=== PATIENT | male | born 2000 | race Caucasian/White ===

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

== ENCOUNTER 2018-01-12 14:25 | Emergency (ER) | payer OTHER ==
[2018-01-12 14:39] VITALS: BP 113/64
[2018-01-12] MEDS ORDERED: predniSONE TAB* 20 MG PO ONE (14:48)
[2018-01-12] MEDS ORDERED: Triamcinolone Acetonide* 40 MG/ML 1 ML VIAL IM ONE (14:48)
--- NOTE | 2018-01-12 14:56 | UC ---
Skin Complaint HPI - HPI Summary HPI Summary: Patient is a 17-year-old male with a 3 day history of a spreading pruritic rash. He states that he was out in the [place] a week or so ago. Fever or chills absent. No headache or myalgias. - History of Current Complaint Chief Complaint: UCSkin Time Seen by Provider: 01/12/18 14:40 Stated Complaint: SKIN COMPLAINT Hx Obtained From: Patient Onset/Duration: Gradual Onset, Lasting Days Timing: Constant Onset Severity: Mild Current Severity: Mild Pain Intensity: 0 Pain Scale Used: 0-10 Numeric Location: Other - arms/legs/beltline Character: Pruritus, Redness, Raised Aggravating Factor(s): Nothing Alleviating Factor(s): Nothing Associated Signs & Symptoms: Positive: Rash - Allergy/Home Medications Allergies/Adverse Reactions: Allergies Allergy/AdvReac Type Severity Reaction Status Date / Time No Known Allergies Allergy Verified 01/12/18 14:37 Home Medications: Home Medications Aspirin TAB* [Aspirin 325 MG TAB*] 325 mg PO DAILY 01/12/18 [History Confirmed 01/12/18] Review of Systems Constitutional: Negative Skin: Rash Eyes: Negative ENT: Negative Respiratory: Negative Cardiovascular: Negative Gastrointestinal: Negative Genitourinary: Negative Motor: Negative Neurovascular: Negative Musculoskeletal: Negative Neurological: Negative Psychological: Negative Is Patient Immunocompromised?: No All Other Systems Reviewed And Are Negative: Yes PMH/Surg Hx/FS Hx/Imm Hx Previously Healthy: Yes - Surgical History Surgical History: Yes Surgery Procedure, Year, and Place: appendectomy 2010. right acl repair - Family History Known Family History: Positive: Hypertension - Social History Alcohol Use: None Substance Use Type: None Smoking Status (MU): Never Smoked Tobacco - Immunization History Most Recent Influenza Vaccination: UNSURE Vaccination Up to Date: Yes Physical Exam Triage Information Reviewed: Yes Appearance: Well-Appearing, No Pain Distress Vital Signs: Initial Vital Signs Temp 98.7 F 01/12/18 14:34 Pulse 79 01/12/18 14:34 Resp 12 01/12/18 14:34 BP 113/64 01/12/18 14:34 Pulse Ox 99 01/12/18 14:34 Vital Signs Reviewed: Yes ENT Exam: Normal Dental Exam: Normal Neck: Positive: Supple, Nontender, No Lymphadenopathy Respiratory: Positive: Lungs clear, Normal breath sounds, No respiratory distress Cardiovascular: Positive: RRR, No Murmur Musculoskeletal: Positive: ROM Intact, No Edema Neurological: Positive: Alert Psychological Exam: Normal Skin Exam: Other - rash on arms and legs c/w contact dermatitis Course/Dx - Diagnoses Provider Diagnoses: contact dermatitis Discharge - Sign-Out/Discharge Documenting (check all that apply): Discharge/Admit/Transfer - Discharge Plan Condition: Stable Disposition: HOME Patient Education Materials: Contact Dermatitis (ED) Referrals: Geovanna Ashraf MD [Primary Care Provider] - If Needed Additional Instructions: CALL FOR ANY QUESTIONS RETURN FOR ANY PROBLEMS - Billing Disposition and Condition Condition: STABLE Disposition: Home
== END 2018-01-12 15:10 | disposition home or self-care (01) ==
LOC: UCCORT 14:25
DX: L25.9 Unspecified contact dermatitis, unspecified cause (principal)
CPT/HCPCS: 96372; 99212; G0463; J3301; J7512

== ENCOUNTER 2018-11-01 15:53 | Emergency (ER) | payer OTHER ==
--- OUTSIDE RECORDS SUMMARY | 2018-11-01 16:04 | XMS REPORT | Continuity of Care Document ---
:2000 External Reference #:[id number] Author Name Hoa Caldera MD Address [address] [place] [address] Care Team Providers Name Role Phone Luna Palomino NP Care Team Information Financial Service Professional Unavailable Luna Palomino NP Primary Care Physician Unavailable Payers Date Identification Numbers Payment Provider Subscriber Effective: 2018 Policy Number: [id number] [employer] Carlos Tay PayID: [id number] [address] [place] [address] Expires: 2018 Policy Number: [id number] Medicaid Carlos Tay Group Name: 1 1 [address] PayID: [id number] [place] [address] Advance Directives Description No Information Available Problems Date Description Provider Status Onset: 07/30/2017 Irritable bowel syndrome Luna Palomino FNP Active Note: Document: 07/27/17 - Consult Gastrointestinal Onset: 10/04/2017 Sprain of cruciate ligament of knee Dianna Parish PA Active Onset: 10/08/2017 Tear of articular cartilage of right Hoa Caldera MD Active knee, current, subsequent encounter Onset: 01/26/2018 Derangement of knee Hoa Caldera MD Active Onset: 01/29/2017 Adult health examination Geovanna Ashraf MD Resolved Resolved: 07/30/2017 Family History Date Family Member(s) Observation Comments Father Father Alive & Well Father 47 Mother Hypothyroidism Mother 43 Siblings 2 Social History Type Date Description Comments Sex Unknown Lives With Parents Lives With Sibling(S) Diet Patient follows no dietary restrictions Occupation Student Work Status Unemployed Hand Dominance Right-handed Tobacco Use Start: Unknown Never Smoked Cigarettes Tobacco Use Start: Unknown Never Smoked Cigars Tobacco Use Start: Unknown Never Smoked A Pipe Smoking Status Reviewed: 08/01/18 Never Smoked A Pipe Smokeless Tobacco Never Used Smokeless Tobacco ETOH Use Denies alcohol use Tobacco Use Start: Unknown Patient denies history of smoking Recreational Drug Use Denies Drug Use Allergies, Adverse Reactions, Alerts Description No Known Drug Allergies Medications Medication Date Status Form Strength Qnty SIG Indications Ordering Provider Naproxen Sodium Active Tablets 550mg 1 by Unknown 0 mouth twice a day as needed for knee No Active Hx Unknown Medications - 9 No Active Hx Unknown Medications - 8 Percocet Hx Tablets 5-325mg 30tab 1 by Verenice 8 - s mouth Hoa, every 4-6 MD 8 hour as needed pain No Active Hx Unknown Medications - [address] Hx Tablets DR 500mg 60tab 1 tab by Sandie, 8 - s mouth Mina, twice a M.D. 8 day after meals Tretinoin Hx Cream 0.05% Ciaran 0 - [place] MD Peters Clindamycin Hx Solution 1% Ciaran Phosphate 0 - [place] MD Peters Ibuprofen Hx Tablets 600mg 1 tab by Unknown 0 - mouth three 8 times a day Hydrocodone-Gregg Hx Tablets 5-325mg 10tab 1 tab by Unknown taminophen 0 - s mouth every 6 8 hours as needed Cephalexin Hx Capsules 500mg take one Unknown 0 - tab by mouth 8 every 6 hours for seven days Meloxicam Hx Tablets 7.5mg 30tab 1 by Unknown 0 - s mouth every day 8 as needed as directed Acetaminophen Hx Tablets 325mg 100ta Every 6 Unknown 0 - bs Hours as Needed as 8 needed for Pain. Fever Amoxicillin/Cla Hx Tablets 875-125mg 14tab 2 Times A Unknown vulanate 0 - s Day Potassium [address] H[address] 325mg 14tab Once Unknown 0 - s Daily Unknown Omeprazole Hx Tablets DR 20mg 15tab Once Unknown 0 - s Daily 8 Polyethylene Hx Powder 3350NF 30uni AT Unknown Glycol 3350 0 - ts Bedtime 8 Docusate Sodium Hx Tablets 8.6-50mg 60tab 2 Times A Unknown & Senna 0 - s Day Stimulant Laxative/Stool 8 Softener Oxycodone-Aceta Hx Tablets 5-325mg 20tab Every 6 Unknown minophen 0 - s Hours for Pain 8 Tretinoin Hx Cream 0.05% Ciaran 0 - [place], 8 Clindamycin Hx Solution 1% Medhat Wagoner 0 - [place] 8 Oseltamivir Hx Capsules 75mg Thomason, Phosphate 0 - Neisha Arteaga MARVEL 8 Tylenol Hx Tablets 325mg 2 by Unknown 0 - mouth every 12 8 hours as needed Medications Administered in Office Medication Date Status Form Strength Qnty SIG Indications Ordering Provider PPD 08/12 Administered Injection Family /2018 Nurse PPD 07/29 Administered Injection Family /2019 Nurse Methylprednisolone 08/03 Administered Injection gia Allison Elizabeth (Depomedrol) 80mg S., RPAC injection PPD 02/23 Administered Injection Georgette, DANTE Mccoy PPD 01/29 Administered Injection Andriy /2016 MD Geovanna Immunizations CPT Code Status Date Vaccine Lot # [id number] Given 08/02/2017 Varicella (Chicken Pox) Vaccine [id number] 83286 Given 03/04/2016 Meningococcal Conjugate Vaccine Serogroups For [id number] Intramuscular Use 63682 Given 08/05/2009 Tdap injection 89301 Given 08/05/2009 flu vaccination 31528 Given 06/10/2009 H1N1 Immuniation Adminstration 02072 Given 04/03/2003 Poliovirus Vaccine Subcutaneous Or Intramuscular 41680 Given 04/03/2003 MMR Vaccine, Live, For Subcutaneous Use 99579 Given 04/03/2003 DTaP Vaccine Younger Than 7 44744 Given 09/23/2001 Varicella (Chicken Pox) Vaccine 13199 Given 09/23/2001 Pneumococcal Conjugate Vaccine 7 Valent For Intramuscular Use 16433 Given 01/15/2000 Hepatitis B & Hib Vaccine 32187 Given 01/15/2000 Poliovirus Vaccine Subcutaneous Or Intramuscular 88070 Given 01/15/2000 MMR Vaccine, Live, For Subcutaneous Use 52584 Given 11/14/1999 DTaP Vaccine Younger Than 7 51813 Given 1998 Hepatitis B Vaccine Pediatric/Adolescent 94217 Given 1998 DTaP & Hib Vaccine 39270 Given 1998 Poliovirus Vaccine Oral 58797 Given 1998 Hepatitis B Vaccine Pediatric/Adolescent 04902 Given 1998 DTaP & Hib Vaccine 55183 Given 1998 DTP Toxoids & Hib Vaccine 40192 Refused 03/04/2016 Gardasil Vital Signs Date Vital Result Comment 08/01/2018 1:34pm BP Systolic 118 mmHg BP Diastolic 68 mmHg Body Temperature 98.8 F Heart Rate 70 /min Respiratory Rate 18 /min Height 71 inches 5'11" Weight 162.38 lb BMI (Body Mass Index) 22.6 kg/m2 BSA (Body Surface Area) 1.93 m2 [place] body weight in kilograms 78 kg 05/31/2018 10:54am BP Systolic Sitting Left Arm 107 mmHg BP Diastolic Sitting Left Arm 67 mmHg Body Temperature 97.8 F Heart Rate 72 /min Respiratory Rate 17 /min Height 72 inches 6'0" Weight 163.00 lb BMI (Body Mass Index) 22.1 kg/m2 BSA (Body Surface Area) 1.95 m2 [place] body weight in kilograms 81 kg O2 % BldC Oximetry 98 % 05/18/2018 2:30pm BP Systolic Sitting Left Arm 106 mmHg BP Diastolic Sitting Left Arm 62 mmHg Body Temperature 98.7 F Heart Rate 103 /min Pt was at Gym Respiratory Rate 17 /min Height 72 inches 6'0" Weight 159.00 lb BMI (Body Mass Index) 21.6 kg/m2 BSA (Body Surface Area) 1.93 m2 [place] body weight in kilograms 81 kg O2 % BldC Oximetry 95 % 04/11/2018 10:50am BP Systolic 120 mmHg BP Diastolic 76 mmHg Body Temperature 97.7 F Heart Rate 74 /min Height 72 inches 6'0" Weight 161.00 lb BMI (Body Mass Index) 21.8 kg/m2 BSA (Body Surface Area) 1.94 m2 [place] body weight in kilograms 81 kg Height Percentile 80 % Weight Percentile 59th O2 % BldC Oximetry 97 % Pain Level 0 02/28/2018 2:55pm BP Systolic Sitting Right Arm 117 mmHg BP Diastolic Sitting Right Arm 76 mmHg Heart Rate 71 /min Respiratory Rate 12 /min Height 72 inches 6'0" Weight 155.38 lb BMI (Body Mass Index) 21.1 kg/m2 BSA (Body Surface Area) 1.91 m2 [place] body weight in kilograms 81 kg Height Percentile 80 % Weight Percentile 51st O2 % BldC Oximetry 99 % 02/09/2018 1:15pm BP Systolic Sitting Left Arm 109 mmHg BP Diastolic Sitting Left Arm 72 mmHg Body Temperature 97.7 F Heart Rate 81 /min Respiratory Rate 17 /min Height 72 inches 6'0" Weight 154.00 lb BMI (Body Mass Index) 20.9 kg/m2 BSA (Body Surface Area) 1.91 m2 [place] body weight in kilograms 81 kg Height Percentile 80 % Weight Percentile 49th O2 % BldC Oximetry 98 % 01/26/2018 2:22pm BP Systolic Sitting Left Arm 112 mmHg BP Diastolic Sitting Left Arm 71 mmHg Body Temperature 98.4 F Heart Rate 68 /min Respiratory Rate 18 /min Height 72 inches 6'0" Weight 156.00 lb BMI (Body Mass Index) 21.2 kg/m2 BSA (Body Surface Area) 1.92 m2 [place] body weight in kilograms 81 kg Height Percentile 80 % Weight Percentile 52nd O2 % BldC Oximetry 97 % 01/21/2018 1:50pm BP Systolic Sitting Left Arm 109 mmHg BP Diastolic Sitting Left Arm 67 mmHg Body Temperature 97.9 F Heart Rate 67 /min Respiratory Rate 18 /min Height 72 inches 6'0" Weight 156.00 lb BMI (Body Mass Index) 21.2 kg/m2 BSA (Body Surface Area) 1.92 m2 [place] body weight in kilograms 81 kg Height Percentile 80 % Weight Percentile 52nd O2 % BldC Oximetry 97 % 12/27/2017 1:04pm BP Systolic Sitting Right Arm 114 mmHg BP Diastolic Sitting Right Arm 73 mmHg Body Temperature 98.6 F Heart Rate 90 /min Respiratory Rate 18 /min Height 72 inches 6'0" Weight 155.00 lb BMI (Body Mass Index) 21.0 kg/m2 BSA (Body Surface Area) 1.91 m2 [place] body weight in kilograms 81 kg Height Percentile 80 % Weight Percentile 51st O2 % BldC Oximetry 98 % 12/20/2017 3:11pm BP Systolic 115 mmHg BP Diastolic 71 mmHg Body Temperature 98.3 F Heart Rate 66 /min Respiratory Rate 16 /min Height 72 inches 6'0" Weight 156.00 lb BMI (Body Mass Index) 21.2 kg/m2 BSA (Body Surface Area) 1.92 m2 [place] body weight in kilograms 81 kg Height Percentile 81 % Weight Percentile 52nd O2 % BldC Oximetry 96 % room air Pain Level 0 12/10/2017 2:15pm BP Systolic 111 mmHg BP Diastolic 69 mmHg Body Temperature 98.0 F Heart Rate 81 /min Height 72 inches 6'0" [place] body weight in kilograms 81 kg Height Percentile 81 % 12/06/2017 1:15pm BP Systolic 142 mmHg BP Diastolic 79 mmHg Body Temperature 99.6 F Height 72 inches 6'0" [place] body weight in kilograms 81 kg Height Percentile 81 % 11/15/2017 3:24pm BP Systolic 127 mmHg BP Diastolic 78 mmHg Body Temperature 98.2 F Height 72 inches 6'0" Weight 162.00 lb BMI (Body Mass Index) 22.0 kg/m2 BSA (Body Surface Area) 1.95 m2 [place] body weight in kilograms 81 kg Height Percentile 81 % Weight Percentile 62nd 10/29/2017 10:13am BP Systolic 108 mmHg BP Diastolic 65 mmHg Body Temperature 97.6 F Heart Rate 78 /min Respiratory Rate 16 /min Height 72 inches 6'0" Weight 160.00 lb BMI (Body Mass Index) 21.7 kg/m2 BSA (Body Surface Area) 1.94 m2 [place] body weight in kilograms 81 kg Height Percentile 81 % Weight Percentile 59th Pain Level 0 10/08/2017 9:05am BP Systolic 131 mmHg BP Diastolic 73 mmHg Body Temperature 97.3 F Heart Rate 61 /min Respiratory Rate 15 /min Height 72 inches 6'0" Weight 162.00 lb BMI (Body Mass Index) 22.0 kg/m2 BSA (Body Surface Area) 1.95 m2 [place] body weight in kilograms 81 kg Height Percentile 81 % Weight Percentile 62nd Pain Level 0 10/04/2017 9:30am BP Systolic Sitting Left Arm 122 mmHg BP Diastolic Sitting Left Arm 79 mmHg Body Temperature 98.0 F Heart Rate 68 /min Respiratory Rate 16 /min Height 72 inches 6'0" Weight 162.38 lb BMI (Body Mass Index) 22.0 kg/m2 BSA (Body Surface Area) 1.95 m2 [place] body weight in kilograms 81 kg Height Percentile 81 % Weight Percentile 63rd Pain Level 0 08/31/2017 10:18am BP Systolic Sitting Left Arm 104 mmHg BP Diastolic Sitting Left Arm 70 mmHg Body Temperature 97.8 F Heart Rate 59 /min Respiratory Rate 20 /min Height 72 inches 6'0" Weight 160.00 lb BMI (Body Mass Index) 21.7 kg/m2 BSA (Body Surface Area) 1.94 m2 [place] body weight in kilograms 81 kg Height Percentile 81 % Weight Percentile 60th 08/03/2017 1:49pm BP Systolic Sitting Left Arm 117 mmHg BP Diastolic Sitting Left Arm 62 mmHg Body Temperature 98.6 F Heart Rate 78 /min Respiratory Rate 20 /min Height 72 inches 6'0" Weight 164.00 lb BMI (Body Mass Index) 22.2 kg/m2 BSA (Body Surface Area) 1.96 m2 [place] body weight in kilograms 73 kg Height Percentile 97 % Weight Percentile 90th 01/29/2017 2:25pm BP Systolic 95 mmHg BP Diastolic 64 mmHg Body Temperature 98.0 F Heart Rate 63 /min Height 72 inches 6'0" Weight 157.00 lb BMI (Body Mass Index) 21.3 kg/m2 BSA (Body Surface Area) 1.92 m2 [place] body weight in kilograms 73 kg Height Percentile 97 % Weight Percentile 87th 03/04/2016 3:32pm BP Systolic Sitting Right Arm 98 mmHg BP Diastolic Sitting Right Arm 78 mmHg Heart Rate 86 /min Respiratory Rate 20 /min Height 72 inches 6'0" Weight 154.00 lb BMI (Body Mass Index) 20.9 kg/m2 BSA (Body Surface Area) 1.91 m2 [place] body weight in kilograms Child kg Height Percentile 97 % Weight Percentile 87th Results Test Date Facility Test Result H/L Range Note Urine Dipstick 08/01/2018 [facility] Ua Leuko - Negative Ua Nitrite - Negative [facility]a Urobilinogen .2 0.2 - 1.0 E.U./L Ua Protein - Negative Ua PH 5 Low 6.5-7.5 Ua Blood - Negative Ua Specific [place] 1.05 High 1.010-1.030 Ua Ketones - Negative Ua Bilirubin - Negative Ua Glucose - Negative Basic Metabolic Panel 12/09/2017 [facility] Glucose 116 mg/dL High 74-106 1 [address] [place], [place] [id number] [phone] BUN 12 mg/dL N 7-18 Creatinine 1.1 mg/dL N 0.6-1.3 Glom Filtration Rate, Estimate >60 mL/min >60 If >60 mL/min >60 2 BUN/Creat 10.9 ratio Sodium 136 mmol/L N 136-145 Potassium 3.9 mmol/L N 3.5-5.1 Chloride 98 mmol/L N 98-107 Carbon Dioxide 28 mmol/L N 21-32 Anion Gap 10 mEq/L N 8-16 Calcium 9.0 mg/dL N 8.5-10.1 Laboratory test 12/09/2017 [facility] Magnesium 1.8 mg/dL N 1.8-2.4 finding [address] [place], [place] [id number] [phone] CBC 12/09/2017 [facility] White Blood 6.1 K/uL N 3.4-10.5 [address] [place], [place] [address] [phone] Red Blood Count 3.90 M/uL Low 4.20-5.80 Hemoglobin 12.3 gm/dL Low 12.8-17.0 Hematocrit 35.5 % Low 38.0-48.0 Mean Cell Volume 91.0 fl N 80.0-96.0 Mean Corpuscular HGB 31.5 pg N 27.0-33.0 Mean Corpuscular HGB Conc 34.6 g/dL N 31.7-36.0 Platelet Count 260 K/uL N 155-360 Red Cell Distri Width %CV 11.6 % N 11.6-15.8 Mean Platelet Volume 10.8 fL High 6.6-10.6 CBC 12/08/2017 [facility] White Blood Count 6.3 K/uL N 3.4-10.5 [address] [place] [address] [phone] Red Blood Count 3.89 M/uL Low 4.20-5.80 Hemoglobin 12.5 gm/dL Low 12.8-17.0 Hematocrit 35.3 % Low 38.0-48.0 Mean Cell Volume 90.7 fl N 80.0-96.0 Mean Corpuscular HGB 32.1 pg N 27.0-33.0 Mean Corpuscular HGB Conc 35.4 g/dL N 31.7-36.0 Platelet Count 221 K/uL N 155-360 Red Cell Distri Width %CV 11.6 % N 11.6-15.8 Mean Platelet Volume 9.9 fL N 6.6-10.6 Fluid Culture W/ 12/08/2017 [facility] Gram Stain RARE GRAM POSITI [address] <SEE NOTE> [place] [address] [phone] Gram Stain FEW WHITE BLOOD <SEE NOTE> 4 Gram Stain NO EPITHELIAL CE <SEE NOTE> 5 Fluid Culture NO GROWTH: FINAL <SEE NOTE> 6 Laboratory test 12/07/2017 [facility] Bilirubin,Direct 0.2 mg/dL N 0.0-0.[address] [place] [address] [phone] Aot Request 12/07/2017 [facility] Aot Request Test(s) [address] [place] [address] [phone] Tests to be added: CRP CBS W/Automated Diff 12/07/2017 [facility] White Blood 7.6 K/uL N 3.4-10.[address] [place] [address] [phone] Red Blood Count 3.73 M/uL Low 4.20-5.80 Hemoglobin 12.0 gm/dL Low 12.8-17.0 Hematocrit 34.2 % Low 38.0-48.0 Mean Cell Volume 91.7 fl N 80.0-96.0 Mean Corpuscular HGB 32.2 pg N 27.0-33.0 Mean Corpuscular HGB Conc 35.1 g/dL N 31.7-36.0 Platelet Count 204 K/uL N 155-360 Red Cell Distri Width SD 38.4 fl N 36-51 Red Cell Distri Width %CV 11.9 % N 11.6-15.8 Mean Platelet Volume 10.5 fL N 6.6-10.6 Neut% 68.3 % High 28.0-68.0 Lymph % 17.6 % Low 20.0-42.0 [place] % 12.2 % High 0.0-10.0 Eo% 1.5 % N 0.0-6.6 Bas% 0.4 % N 0.0-1.1 Neut# 5.17 K/uL N 1.8-7.0 Lymph # 1.33 K/uL N 1.0-4.0 [place] # 0.92 K/uL High 0.0-0.8 Eos # 0.11 K/uL N 0.0-0.5 Baso # 0.03 K/uL N 0.0-0.1 Basic Metabolic Panel 12/07/2017 [facility] Glucose 97 mg/dL N 74-[address] [place] [address] [phone] BUN 16 mg/dL N 7-18 Creatinine 1.0 mg/dL N 0.6-1.3 Glom Filtration Rate, Estimate >60 mL/min >60 If >60 mL/min >60 8 BUN/Creat 16.0 ratio Sodium 138 mmol/L N 136-145 Potassium 4.6 mmol/L 3.5-5.1 Chloride 106 mmol/L N 98-107 Carbon Dioxide 25 mmol/L N 21-32 Anion Gap 7 mEq/L Low 8-16 Calcium 8.7 mg/dL N 8.5-10.1 Laboratory test 12/07/2017 [facility] C-Reactive 81.1 mg/L High <3.[address] Protein,[place] [address] [phone] Blood Culture 12/06/2017 [facility] Blood Culture NO GROWTH: [address] Aerobic FINAL <[place] [address] NOTE> [phone] Blood Culture Anaerobic NO GROWTH: FINAL <SEE NOTE> 10 Lactic Acid 12/06/2017 [facility] Lactic Acid 0.8 mmol/L N 0.4-1.[address] [place] [address] [phone] Lab Reflex >2.0 for Sepsis? Y Blood Culture 12/06/2017 [facility] Blood Culture NO GROWTH: FINAL [address] Aerobic <SEE NOTE> [place] [address] [phone] Blood Culture Anaerobic NO GROWTH: FINAL <SEE NOTE> 12 Laboratory test 09/27/2016 [facility] Laboratory Rapid Strep Negative N Negative 13 finding [phone] Molecular Throat-Beta 11/26/2011 N2N/CCD Import M 14 Strept ---- <See Note> 1 RT LEG PAIN, INGUINAL ADENOPAT 2 Note: Persistent reduction for 3 months or more in an eGFR <60 mL/min/1.73 m2 defines CKD. Patients with eGFR values >/=60 mL/min/1.73 m2 may also have CKD if evidence of persistent proteinuria is present. The original MDRD equation for estimated GFR is not valid for patients less than 18 years of age. Additional information may be found at www.kdoqi.org. 3 RARE GRAM POSITIVE COCCI 4 FEW WHITE BLOOD CELLS 5 NO EPITHELIAL CELLS 6 NO GROWTH: FINAL REPORT 7 Tests: CRP Instructions: 8 Note: Persistent reduction for 3 months or more in an eGFR <60 mL/min/1.73 m2 defines CKD. Patients with eGFR values >/=60 mL/min/1.73 m2 may also have CKD if evidence of persistent proteinuria is present. The original MDRD equation for estimated GFR is not valid for patients less than 18 years of age. Additional information may be found at www.kdoqi.org. 9 NO GROWTH: FINAL REPORT 10 NO GROWTH: FINAL REPORT 11 NO GROWTH: FINAL REPORT 12 NO GROWTH: FINAL REPORT 13 Bullet Maker: [id number] OSMANY ASTORGA 14 ------- RUN DATE: 11/29/11 [facility] NMI LIVE PAGE 1 RUN TIME: 55 Specimen Inquiry RUN USER: INTERFACE ----- Name: CARLOS TAY V Status: DEP CLI Re04/29 Age/Sex: Unit#: [id number] [facility] 89 ----- SPEC #: [id number] RUFUS: 11/26/11 STATUS: COMP REQ #: [id number] RECD: 11/27/[address] [facility] [address]: Juancho GARZA,Tushar Pereira SOURCE: THROAT ENTR: 11/27/11-[address] [facility] [address]: Gabriel GARZA,Nessa Pereira SPDESC: ORDERED: THROAT-BETA STR ACT WKST: BS 11/29/11 #1 ----- Procedure Result Verified Site ----- > THROAT-BETA STREP CULTURE Final 11/29/11-0655 ML NEGATIVE FOR GROUP A BETA STREPTOCOCCUS ----- ML - [facility] Permit #[id number] [address] [place] [address] ----- DEPARTMENT OF PATHOLOGY, [address] [place] [address] [facility] Permit #[id number] Freddie Dubose M.D. [employer] ----- Procedures Date Code Description Status 08/15/2018 82888 Punch Biopsy Of Skin Completed 08/01/2018 96190 Visual Screening Test Of Visual Acuity, Quantitative, Completed Bilateral 02/09/2018 88076 X-Ray Knee Complete W/Obliques & Tunnel And/Or Standing Completed Views 11/30/2017 53043 Arthroscopic anterior cruciate ligment Completed repair/reconstruct/augment 11/30/2017 98756 Arthroscopic anterior cruciate ligment Completed repair/reconstruct/augment 08/03/2017 98750 Asp./Injection major joint Completed 01/29/2017 12880 Theraputic Or Diagnostic Injection Completed Encounters Type Date Location Provider Dx Diagnosis Office Visit 08/15/2018 [facility] Georgette, 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 Raul Carrasco, uncertain behavior [employer]ER of skin Office Visit 08/01/2018 [facility] Georgette, Z00.01 Encounter for 1:45p Raul Carrasco, general adult [employer] medical exam w abnormal findings D48.5 Neoplasm of uncertain behavior of skin Z11.1 Encounter for screening for respiratory tuberculosis Office Visit 05/31/2018 10:15a [facility] Verenice, S83.511D Sprain of MD Hoa anterior cruciate ligament of right knee, subs M23.321 Oth meniscus derang, post horn of medial meniscus, r knee M23.351 Oth meniscus derang, posterior horn of lat mensc, right knee Office Visit 05/18/2018 2:30p Orthopa[facility] Office Verenice S83.511D Sprain of MD Hoa anterior cruciate ligament of right knee, subs Office Visit 04/11/2018 10:45a Orthopaedic Office Verenice S83.511D Sprain of MD Hoa anterior cruciate ligament of right knee, subs Office Visit 10/29/2017 10:00a Orthopaedic Office Verenice S83.511D Sprain of MD Hoa anterior cruciate ligament of right knee, subs Office Visit 10/08/2017 9:00a Orthopaedic Office Verenice S83.511D Sprain of MD Hoa anterior cruciate ligament of right knee, subs X58.xxxD Exposure to other specified factors, subsequent encounter Office Visit 10/04/2017 Orthopaedic Dianna Parish, S83.511A Sprain of 9:15a Office PA anterior cruciate ligament of right knee, init Office Visit 08/31/2017 Orthopaedic Elizabeth Allison M75.41 Impingement 10:00a Office S., RPAC syndrome of right shoulder Office Visit 08/03/2017 Elizabeth Bardales M25.511 Pain in right 2:30p Office S., RPAC shoulder M75.41 Impingement syndrome of right shoulder Office Visit 02/25/2017 Family Georgette, Z11.1 Encounter for 1:30p Medicine DANTE Delvalle screening for RD respiratory tuberculosis Office Visit 02/01/2017 Family Palomino Z11.1 Encounter for 11:15a Medicine DANTE Delvalle screening for RD respiratory tuberculosis Office Visit 01/29/2017 Geovanna Ball MD Z00.00 Encntr for 2:30p Medicine Raul general adult RD medical exam w/o abnormal findings Z11.1 Encounter for screening for respiratory tuberculosis Plan of Treatment 08/15/2018 - Luna Palomino FNPD48.5 Neoplasm of uncertain behavior of skinFollow up:10 days suture removal
[2018-11-01 17:07] VITALS: BP 112/67
--- NOTE | 2018-11-01 17:27 | UC ---
Lower Extremity/Ankle HPI - HPI Summary HPI Summary: 18 -year-old male who turned his right ankle yesterday while he was playing basketball. He complains pain to the anterior aspect of the ankle. - History of Current Complaint Chief Complaint: UCLowerExtremity Stated Complaint: RT ANKLE INJ Time Seen by Provider: 11/01/18 17:21 Hx Obtained From: Patient Onset/Duration: Sudden Onset Severity Initially: Moderate Severity Currently: Mild Pain Intensity: 0 Aggravating Factor(s): Ambulation Alleviating Factor(s): Rest Able to Bear Weight: Yes - Risk Factors Gout Risk Factors: Negative DVT Risk Factors: Negative Septic Arthritis Risk Factor: Negative - Allergies/Home Medications Allergies/Adverse Reactions: Allergies Allergy/AdvReac Type Severity Reaction Status Date / Time seasonal Allergy Sneezing Uncoded 11/01/18 17:07 Home Medications: Home Medications Cetirizine* [ZyrTEC 10 MG TAB*] 10 mg PO DAILY PRN 11/01/18 [History Confirmed 11/01/18] Other Allergy Pill 1 dose PO DAILY PRN 11/01/18 [History Confirmed 11/01/18] PMH/Surg Hx/FS Hx/Imm Hx Previously Healthy: Yes - Surgical History Surgical History: Yes Surgery Procedure, Year, and Place: appendectomy 2010. right acl repair ; right meniscus and ACL "clean-up" 06/2018 [facility] - Family History Known Family History: Positive: Hypertension - Social History Occupation: Student Alcohol Use: None Substance Use Type: None Smoking Status (MU): Never Smoked Tobacco - Immunization History Most Recent Influenza Vaccination: UNSURE Vaccination Up to Date: Yes Review of Systems All Other Systems Reviewed And Are Negative: Yes Motor: Positive: Negative Neurovascular: Positive: Negative Musculoskeletal: Positive: Negative, Other: - Mild pain on palpation of the anterior aspect of his right ankle. Neurological: Positive: Negative Is Patient Immunocompromised?: No Physical Exam Triage Information Reviewed: Yes Appearance: Well-Appearing, No Pain Distress, Well-Nourished Vital Signs: Initial Vital Signs Temp 98.7 F 11/01/18 17:00 Pulse 60 11/01/18 17:00 Resp 20 11/01/18 17:00 BP 112/67 11/01/18 17:00 Pulse Ox 99 11/01/18 17:00 Vital Signs Reviewed: Yes Musculoskeletal: Positive: Strength Intact, ROM Intact, No Edema, Other: - Mild pain on palpation to the anterior aspect of the right ankle, no bruising, erythema, deformity or swelling is noted. Achilles is intact. No pain at the base of the first or fifth metatarsal. Neurological: Positive: Alert Psychological Exam: Normal Skin Exam: Normal Lower Extremity Course/Dx - Course Course Of Treatment: Right ankle x-ray:REPORT AND IMPRESSION: #. Negative for fracture or articular malalignment. Preserved joint spaces. Mild nonfocal soft tissue swelling. - Differential Dx/Diagnosis Provider Diagnosis: Ankle sprain Discharge - Sign-Out/Discharge Documenting (check all that apply): Patient Departure All imaging exams completed and their final reports reviewed: Yes - Discharge Plan Condition: Good Disposition: HOME Patient Education Materials: Ankle Sprain (DC) Referrals: Geovanna Ashraf MD [Primary Care Provider] - Additional Instructions: Apply ice intermittently over the next day or 2. May ambulate as pain permits. Definite follow-up with an orthopedist if no improvement in 3 or 4 days. - Billing Disposition and Condition Condition: GOOD Disposition: Home - Attestation Statements Provider Attestation: Per institutional requirements, I have reviewed the chart, however, I was not consulted specifically or made aware of this patient by the midlevel provider. I did not personally evaluate, interact with , or disposition this patient.
== END 2018-11-01 17:56 | disposition home or self-care (01) ==
LOC: UCCORT 15:53
DX: S93.401A Sprain of unspecified ligament of right ankle, initial encounter (principal); X50.1XXA Overexertion from prolonged static or awkward postures, initial encounter; Y93.67 Activity, basketball; Y92.9 Unspecified place or not applicable
CPT/HCPCS: 99211; G0463